=== PATIENT | male | born 1980 | race Two or more races ===

== ENCOUNTER 2016-10-10 23:40 | Emergency (ER) | payer OTHER ==
--- NOTE | ~2016-10-10 | CR181 ---
[facility] A Service of [facility] & [facility] RADIOLOGY TEXT RESULTS PATIENT: CYNDI LUTZ LOCATION: [facility] : 80 UNIT #: [id number] AGE: [address]: Bernadette Ewing MD SEX: M ORDER DR: [id number] [facility] [address] [place], [place] [address] [id number] MR#: [id number] Acc #: [id number] NAME: CYNDI LUTZ : 1980 SEX: M STUDY DATE/TIME: 10/11/2016 01:41 UNIT: [facility] ROOM: STUDY DESCRIPTION: CR Lumbar Spine 2 or 3 Views Attending Physician: Bernadette Ewing M.D. Ordering Physician: Bernadette Ewing M.D. Primary Care Physician: Kyra Liu MEDICAL IMAGING REPORT This report is preliminary unless electronic signature is present EXAM Lumbar spine 10/11/2016 at 0141 INDICATION Low back pain with left lower extremity radiculopathy that started tonight. No trauma. FINDINGS AP and lateral projections of the lumbar segment show good mineralization of both anterior and posterior elements. They are all anatomically normal without indication of fracture, dislocation, or malignant change of a sclerotic or lytic type. There is no congenital defect noted. The sacroiliac joints are normal. IMPRESSION Normal lumbar spine. Dictated by... Damon Calderon Jr., M.D. THIS IS AN ELECTRONICALLY VERIFIED REPORT Damon Calderon Jr., M.D. at 10/11/2016 10:02 PM JORGE/reg TD: 10/11/2016 08:06 JOB #: [id number] MEDICAL IMAGING REPORT COPY
[~2016-10-10 23:40] MED LIST: FIORICET 50-321 EACH PO; OTC ACID REFLUX MED
[2016-11-11] MEDS ORDERED: CELEXA20 M1 (13:00)
[2016-11-11] MEDS ORDERED: HYDROCHLOROTH12.5 MG PO (13:00)
[2016-11-11] MEDS ORDERED: AMLODIPINE BESY10 MG PO (13:00)
[2016-11-11] MEDS ORDERED: GABAPENTIN400 M2 PO (13:01)
== END 2016-10-11 03:05 | disposition home or self-care (01) ==
LOC: CED 23:40
DX: M54.32 Sciatica, left side (principal); F17.200 Nicotine dependence, unspecified, uncomplicated; Z88.5 Allergy status to narcotic agent
CPT/HCPCS: 72100; 99283; 99284

== ENCOUNTER 2016-11-11 13:47 | Emergency (ER) | payer OTHER ==
[~2016-11-11 13:47] MED LIST changes: +AMLODIPINE BESY10 MG PO; +CELEXA20 M1; +GABAPENTIN400 M2 PO; +HYDROCHLOROTH12.5 MG PO
== END 2016-11-11 14:09 | disposition home or self-care (01) ==
LOC: SED 13:47
DX: M54.12 Radiculopathy, cervical region (principal); I10 Essential (primary) hypertension; F17.200 Nicotine dependence, unspecified, uncomplicated; Z88.6 Allergy status to analgesic agent; Z79.899 Other long term (current) drug therapy
CPT/HCPCS: 99282